=== PATIENT | female | born 1980 | race Caucasian/White ===

== ENCOUNTER 2018-01-11 16:56 | Emergency (ER) | payer OTHER ==
--- OUTSIDE RECORDS SUMMARY | 2018-01-11 18:10 | XMS REPORT ---
:1980 External Reference #:[id number] Author Organization [facility] Address [address], [address] [place] [address] Phone [phone] Care Team Providers Name Role Phone Frida Mcnally Care Team Information Amr Physician Unavailable Sherri Mosley M.D. Primary Care Physician Unavailable Payers Type Date Identification Numbers Payment Provider Subscriber Commercial Policy Number: [id number] [facility] Choco Finn PayID: [id number] [address] [place] [address] Problems Date Description Provider Status Onset: 05/20/2017 Derangement of knee Any Morales MD Active Onset: 05/20/2017 Tear of articular cartilage of left Any Morales MD Active knee, current, subs Onset: 06/12/2017 Mild intermittent asthma Sherri Mosley M.D. Active Onset: 08/29/2011 Gallbladder calculus with acute SimonFer MD Resolved cholecystitis and no obstruction Resolved: 08/22/2016 Onset: 03/09/2011 Contraception care management Lucy Odell MD Resolved Resolved: 08/22/2016 Onset: 06/12/2017 Encounter for other contraceptive Sherri Mosley M.D. Resolved management Resolved: 08/09/2017 Onset: 06/13/2017 Adult health examination Sherri Mosley M.D. Resolved Resolved: 08/09/2017 Onset: 06/13/2017 Screening for malignant neoplasm of Sherri Mosley M.D. Resolved cervix Resolved: 08/09/2017 Family History Date Family Member(s) Problem(s) Comments Father No Current Problems Father Too knee replacements Mother Mitral Valve Prolapse repaired Children 3 living & healthy First Son No Current Problems Second Son No Current Problems First Daughter No Current Problems Second Daughter No Current Problems Third Daughter No Current Problems Siblings 2 living First Brother No Current Problems First Sister Cervical Cancer Hysterectomy, in 30s Grandfather Myocardial Infarction Paternal Grandfather Lung Cancer smoker Paternal Grandfather due to Lung () - smoker Cancer Paternal Grandmother Unknown Maternal Grandfather due to Heart () Attack Maternal Grandmother Unknown : (age 87 Maternal Grandmother due to Leukemia Years) Social History Type Date Description Comments Lives With Spouse Diet Patient follows no dietary restrictions 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 Hand Dominance Right-handed Cigarette Use Quit ETOH Use Rarely consumes alcohol Recreational Drug Use Never Used Drugs Smoking Patient is a former smoker Daily Caffeine Patient consumes minimal amounts of caffeine Allergies, Adverse Reactions, Alerts Date Description Reaction Status Severity Comments 10/21/2014 NKDA active 08/28/2011 Codeine NAUSEA/VOMITING inactive Medications Medication Date Status Form Strength Qnty SIG Indications Ordering Provider Mirena (52 06/13/ Active IUD 20mcg/24HR inserted Z30.8 Melany, [place]) 201706/13/2017, bianca Polanco by Jaclyn 06/13/2022, Lot [id number] Tylenol / Active Capsules 325mg 2 tab by Unknown 0000 mouth three times per day as needed Ibuprofen / Active Capsules 200mg as needed Unknown 0000 Aspirin 09/11/ Hx Tablets 325mg 21tabs 1 tab po q M23.612 Andrew 2018 bob Hurst MD on September 18 Oxycodone 09/11/ Hx Capsules 5mg 42caps 1 tab by M23.612 Andrew [facility] 2018 mouth Any, every 4 hours as needed pain Proair HFA 06/12/ Hx Aerosol 108(90Base 8.5uni 1 puff J45.20 Melany 2018 ) mcg/Act ts every 4 clotilde Polanco as M.DLaith needed Famotidine 03/22/ Hx Tablets 20mg 60tabs 1 by mouth Joya Odell twice a joyce Ayala MD Advair 02/23/ Hx Aerosol 250/50 1units 1 puff Vianca Odell 2013 twice a joyce Ayala MD Ventolin HFA 02/10/ Hx Aerosol 108mcg/Act 1units 1-2 puffs Joya Odell q 4-6 Lucy, hours prn Divalproex 11/25/ Hx Tablets DR 250mg 60tabs 1 by mouth Ned Odell 2013 twice a Lucy day Naproxen Kit 11/10/ Hx Tablets 500mg 60tabs one by Joya White mouth Kim, twice a MD day with food as needed Zoloft / Hx Concentrate 20mg/ml 1 Daily Unknown 0000 Lexapro / Hx Tablets 20mg 30tabs po qd Unknown 0000 Vital Signs Date Vital Result Comment 01/01/2018 BP Systolic Sitting Right Arm 138 mmHg BP Diastolic Sitting Right Arm 88 mmHg Body Temperature 98.7 F Heart Rate 68 /min Respiratory Rate 17 /min Height 61.5 inches 5'1.50" Weight 167.00 lb BMI (Body Mass Index) 31.0 kg/m2 BSA (Body Surface Area) 1.76 m2 [place] body weight in kilograms 49 O2 % BldC Oximetry 97 % 12/11/2017 BP Systolic 128 mmHg BP Diastolic 83 mmHg Body Temperature 98.4 F Heart Rate 84 /min Height 61.5 inches 5'1.50" Weight 173.00 lb BMI (Body Mass Index) 32.2 kg/m2 BSA (Body Surface Area) 1.79 m2 [place] body weight in kilograms 49 O2 % BldC Oximetry 98 % Pain Level 2 11/06/2017 BP Systolic Sitting Right Arm 124 mmHg BP Diastolic Sitting Right Arm 87 mmHg Body Temperature 98.0 F Heart Rate 92 /min Height 61.5 inches 5'1.50" Weight 173.00 lb BMI (Body Mass Index) 32.2 kg/m2 BSA (Body Surface Area) 1.79 m2 [place] body weight in kilograms 49 O2 % BldC Oximetry 98 % 10/07/2017 BP Systolic Sitting Left Arm 135 mmHg BP Diastolic Sitting Left Arm 82 mmHg Body Temperature 99.0 F Heart Rate 87 /min Respiratory Rate 18 /min Height 61.5 inches 5'1.50" Weight 168.00 lb BMI (Body Mass Index) 31.2 kg/m2 BSA (Body Surface Area) 1.76 m2 [place] body weight in kilograms 49 O2 % BldC Oximetry 98 % 09/27/2017 BP Systolic Sitting Left Arm 124 mmHg BP Diastolic Sitting Left Arm 80 mmHg Body Temperature 98.1 F Heart Rate 89 /min Respiratory Rate 16 /min Height 61.5 inches 5'1.50" Weight 173.00 lb BMI (Body Mass Index) 32.2 kg/m2 BSA (Body Surface Area) 1.79 m2 [place] body weight in kilograms 49 O2 % BldC Oximetry 98 % 09/11/2017 BP Systolic 115 mmHg BP Diastolic 76 mmHg Body Temperature 97.9 F Heart Rate 74 /min Respiratory Rate 16 /min Height 61.5 inches 5'1.50" Weight 171.00 lb BMI (Body Mass Index) 31.8 kg/m2 BSA (Body Surface Area) 1.78 m2 [place] body weight in kilograms 49 O2 % BldC Oximetry 97 % Room Air Pain Level 5 08/13/2017 BP Systolic 104 mmHg BP Diastolic 64 mmHg Body Temperature 98.3 F Heart Rate 84 /min Height 62 inches 5'2" Weight 171.00 lb BMI (Body Mass Index) 31.3 kg/m2 BSA (Body Surface Area) 1.79 m2 [place] body weight in kilograms 50 O2 % BldC Oximetry 98 % 07/12/2017 BP Systolic Sitting Left Arm 140 mmHg BP Diastolic Sitting Left Arm 86 mmHg Body Temperature 99.3 F Heart Rate 84 /min Respiratory Rate 17 /min Height 62 inches 5'2" Weight 168.00 lb BMI (Body Mass Index) 30.7 kg/m2 BSA (Body Surface Area) 1.78 m2 [place] body weight in kilograms 50 06/13/2017 BP Systolic 122 mmHg BP Diastolic 80 mmHg Heart Rate 84 /min Weight 168.00 lb O2 % BldC Oximetry 97 % 06/12/2017 BP Systolic Sitting Left Arm 116 mmHg BP Diastolic Sitting Left Arm 73 mmHg Body Temperature 98.9 F Heart Rate 79 /min Respiratory Rate 19 /min Height 62 inches 5'2" Weight 168.00 lb BMI (Body Mass Index) 30.7 kg/m2 BSA (Body Surface Area) 1.78 m2 [place] body weight in kilograms 50 06/12/2017 BP Systolic Sitting Left Arm 102 mmHg BP Diastolic Sitting Left Arm 78 mmHg Height 52 inches 4'4" Weight 168.00 lb BMI (Body Mass Index) 43.7 kg/m2 BSA (Body Surface Area) 1.56 m2 [place] body weight in kilograms 45 05/20/2017 BP Systolic Sitting Left Arm 122 mmHg BP Diastolic Sitting Left Arm 76 mmHg Heart Rate 80 /min Height 62 inches 5'2" Weight 167.00 lb BMI (Body Mass Index) 30.5 kg/m2 BSA (Body Surface Area) 1.77 m2 [place] body weight in kilograms 50 05/06/2017 BP Systolic Sitting Right Arm 110 mmHg BP Diastolic Sitting Right Arm 74 mmHg Heart Rate 76 /min Height 62 inches 5'2" Weight 170.00 lb BMI (Body Mass Index) 31.1 kg/m2 BSA (Body Surface Area) 1.78 m2 [place] body weight in kilograms 50 12/08/2013 Height 62 inches 5'2" Weight 208.00 lb 11/10/2013 BP Systolic 128 mmHg BP Diastolic 82 mmHg 11/10/2013 BP Systolic 144 mmHg BP Diastolic 92 mmHg Height 62 inches 5'2" Weight 206.00 lb 12/22/2012 BP Systolic 118 mmHg BP Diastolic 80 mmHg Height 62 inches 5'2" Weight 194.00 lb 08/29/2011 BP Systolic Sitting Left Arm 112 mmHg BP Diastolic Sitting Left Arm 79 mmHg Heart Rate 90 /min Respiratory Rate 18 /min Height 62 inches 5'2" Weight 169.00 lb w clothes & shoes BMI (Body Mass Index) 30.9 kg/m2 01/10/2011 BP Systolic 1 mmHg 01/10/2011 BP Systolic 118 mmHg BP Diastolic 80 mmHg Height 62 inches 5'2" 12/07/2010 BP Systolic 114 mmHg BP Diastolic 68 mmHg Height 62 inches 5'2" Weight 165.00 lb Results Test Date Test Result H/L Range Note Laboratory test finding 09/17/2017 Urine HCG NEGATIVE Negative 1, 2 (Qualitative) Laboratory test finding 11/27/2013 Thyroid Stim Hormone 1.35 uIU/mL 0.49- 4.67 Basic Metabolic Panel 11/27/2013 Anion Gap 13 mEq/L 8-16 BUN 14 mg/dL 5-23 BUN/Creat 14.0 ratio Calcium 9.0 mg/dL 8.5-10.1 Carbon Dioxide 23 mEq/L 18-29 Chloride 107 mmol/L 98-107 Creatinine 1.0 mg/dL 0.5-1.4 Glom Filtration Rate, Estimate >60 mL/min >60 Glucose 85 mg/dL 76-115 If >60 mL/min >60 3 Potassium 4.0 mmol/L 3.5-5.1 Sodium 139 mmol/L 136-145 CBS W/Automated Diff 11/27/2013 Bas% 0.5 % 0.0-1.1 Baso # 0.04 K/uL 0.0-0.1 Eo% 2.0 % 0.0-6.6 Eos # 0.16 K/uL 0.0-0.5 Hematocrit 41.4 % 36.0-46.1 Hemoglobin 14.5 gm/dL 11.6-15.8 Lymph # 2.53 K/uL 0.8-3.4 Lymph % 32.3 % 17.0-46.1 Mean Cell Volume 89.4 fl 80.9-99.0 Mean Corpuscular HGB 31.3 pg 25.9-32.7 Mean Corpuscular HGB Conc 35.0 g/dL High 30.8-34.3 Mean Platelet Volume 10.9 fL 8.9-12.4 Coke # 0.49 K/uL 0.3-0.9 Coke % 6.3 % 4.3-13.2 Neut# 4.62 K/uL 1.0-7.0 Neut% 58.9 % 40.4-72.8 Platelet Count 244 K/uL 155-360 Red Blood Count 4.63 M/uL 3.90-5.40 Red Cell Distri Width %CV 13.0 % 11.7-14.4 Red Cell Distri Width SD 41.8 fl 3-47 White Blood Count 7.8 K/uL 3.1-10.7 Lipid Profile (Trig/Chol/HDL) 12/22/2012 Cholesterol 155 mg/dL Less than 200 Cholesterol/HDL Ratio 3.2 Average 1-4.44 HDL Cholesterol 49 mg/dL 40-60 4 LDL Cholesterol 87.4 Less Than 100 5 Triglycerides 93 mg/dL 40-200 Laboratory test finding 12/22/2012 ThinPrep Pap: Cervix/Endocx See Note 6 CBC No Diff 12/22/2012 Hematocrit 41 % 35-47 Hemoglobin 14.6 g/dL 12.0-16.0 Mean Corpuscular HGB Conc 36 g/dL 31-36 Mean Corpuscular Hemoglobin 33 pg High 27-31 Mean Corpuscular Volume 91 fL 80-97 Mean Platelet Volume 9 um3 7.4-10.4 Platelet Count 242 10^3/uL 150-450 Red Blood Count 4.47 10^6/uL 4.0-5.4 Red Cell Distribution Width 12 % 10.5-15 White Blood Count 6.0 10^3/uL 4.8-10.8 Basic Metabolic Panel 12/22/2012 Anion Gap 6.0 mmol/L 2-11 BUN/Creatinine Ratio 8.8 8-20 Blood Urea Nitrogen 7 mg/dL 6-24 Calcium 9.6 mg/dL 8.1-9.9 Chloride 106 mmol/L 101-111 Co2 Carbon Dioxide 26.0 mmol/L 22-32 Creatinine 0.80 mg/dL 0.50-1.40 Egfr 107.6 >60 7 Egfr Non- 83.7 >60 Glucose 97 mg/dL 70-100 Potassium 4.1 mmol/L 3.5-5.0 Sodium 138 mmol/L 133-145 Laboratory test finding 12/22/2012 TSH (Thyroid Stimulating 1.51 miu/mL 0.34-5.60 Horm) Laboratory test finding 12/22/2012 HPV High Risk Negative Negative 8 Herpes Culture See Note 9 Laboratory test finding 09/14/2011 Gallbladder See Note 10 Basic Metabolic Panel 09/11/2011 Glucose 90 mg/dL 76-115 BUN 6 mg/dL 5-23 Creatinine 0.9 mg/dL 0.5-1.4 Glom Filtration Rate, Estimate >60 mL/min >60 If >60 mL/min >60 11 BUN/Creat 6.6 ratio Sodium 141 mmol/L 136-145 Potassium 3.8 mmol/L 3.5-5.1 Chloride 108 mmol/L High 98-107 Carbon Dioxide 24 mEq/L 18-29 Anion Gap 13 mEq/L 8-16 Calcium 8.9 mg/dL 8.5-10.1 CBC 09/11/2011 White Blood Count 6.2 K/uL 3.1-10.7 Red Blood Count 4.62 M/uL 3.90-5.40 Hemoglobin 14.2 gm/dL 11.6-15.8 Hematocrit 41.2 % 36.0-46.1 Mean Cell Volume 89.2 fl 80.9-99.0 Mean Corpuscular HGB 30.7 pg 25.9-32.7 Mean Corpuscular HGB Conc 34.5 g/dL High 30.8-34.3 Platelet Count 218 K/uL 155-360 Red Cell Distri Width %CV 13.2 % 11.7-14.4 Mean Platelet Volume 11.1 fL 8.9-12.4 Urine Screen 09/11/2011 Urine Color YELLOW Yellow Urine Clarity CLEAR Clear Urine Glucose - Dipstick NEGATIVE mg/dL Negative Urine Bilirubin - Dipstick NEGATIVE Negative Urine Ketone NEGATIVE mg/dL Negative Urine Specific [place] 1.010 1.010-1.030 Urine Blood NEGATIVE Negative Urine PH 7.0 6.5-7.5 Urine Protein - Dipstick NEGATIVE mg/dL Negative Urine Urobilinogen - Dipstick 0.2 E.U./dL 0.2-1.0 Urine Nitrite - Dipstick NEGATIVE Negative Urine Leuk Esterase NEGATIVE Negative Laboratory test finding 09/11/2011 HCG Serum, Qualitative NEGATIVE Laboratory test finding 08/18/2011 HCG Serum, Qualitative Negative 1 CONSULT 09/12/17 10;30 2 FIRST MORNING SPECIMENS GENERALLY CONTAIN THE HIGHEST CONCENTRATION OF HCG AND ARE RECOMMENDED FOR EARLY DETECTION OF . Method: AdExtentVue One-Step Immunoassay 3 Note: Persistent reduction for 3 months or more in an eGFR <60 mL/min/1.73 m2 defines CKD. Patients with eGFR values >/=60 mL/min/1.73 m2 may also have CKD if evidence of persistent proteinuria is present. The original MDRD equation for estimated GFR is not valid for patients less than 18 years of age. Additional information may be found at www.kdoqi.org. 4 HDL Interpretation: Undesirable: High Risk: Less than 40 mg/dL Desirable: Low Risk: Greater than 60 mg/dL 5 LDL Interpretation: Low Risk Optimal Level: LDL Less than 100 mg/dL Near or Above Optimal: LDL 100-129 mg/dL Borderline High Risk: LDL 130-159 mg/dL High Risk : LDL 160-189 mg/dL Very High Risk: LDL Greater than 189 mg/dL 6 CYTOLOGY SCREENER - LOCAL OPERATOR @ 05/19 Screened by: Karen Guzman SCT(ASCP) PAP: FINAL REPORT SPECIMEN ADEQUACY: SPECIMEN SATISFACTORY FOR INTERPRETATION INTERPRETATION: NEGATIVE FOR INTRAEPITHELIAL LESION OR MALIGNANCY COMMENT: THINPREP PREPARED PAP SLIDE # Prepared in the Cytology laboratory from the ThinPrep sample is 1 ThinPrep smear. PAP ACCESSI QUESTIONNAIRE 04/17 PERTINENT CLINICAL HISTORY FOR PAP (LOCAL OPERATOR ) CYTOLOGY (Check all that apply): ? N Post ? N Menopause? N LMP date: 12/08/12 If patient had related surgical procedure: Related Therapy: IUD: Y Oral Contraception: Depo: Nova Ring: Hormone Replacement: Significant Clinical History: ANNUAL ===== DISCLAIMER: The Pap smear is a screening test and not a diagnostic procedure. False negative and false positive results can and do occur for a number of reasons. Regular screening provides an aid in detecting treatable cervical abnormalities, but should not be used as the only means for detecting cervical dysplasia and carcinoma. ----- KAREN Sams 12/25/12 0801 ----- 7 Because ethnic data is not always readily available, this report includes an eGFR for both -Americans and non- Americans. The National Kidney Disease Education Program (NKDEP) does not endorse the use of the MDRD equation for patients that are not between the ages of 18 and 70, are , have extremes of body size, muscle mass, or nutritional status, or are non- or non-. According to the National Kidney Foundation, irrespective of diagnosis, the stage of the disease is based on the level of kidney function: Stage Description GFR(mL/min/1.73 m(2)) 1 Kidney damage with normal or decreased GFR 90 2 Kidney damage with mild decrease in GFR 60- 89 3 Moderate decrease in GFR 30-59 4 Severe decrease in GFR 15-29 5 Kidney failure <15 (or dialysis) 8 This high-risk HPV test detects thirteen high-risk types (16/18/31/33/35/39/45/51/52/56/58/59/68) without differentiation. Performed at: - [facility] [address] [id number] Crystal Mounter: Akanksha Sheth MD, Phone: [phone] WRONG SPEC FOR TEST 10 OPERATION/PROCEDURE Lap. cholecystectomy DIAGNOSIS: "GALLBLADDER": MILD CHRONIC CHOLECYSTITIS. NO EVIDENCE OF ACUTE INFLAMMATION, DYSPLASIA NOR NEOPLASIA APPRECIATED. WYS/clf GROSS The specimen is received in a single container additionally labeled "GALLBLADDER". This contains a grossly recognizable unopened gallbladder. This has a green shiny smooth surface and overall measures 6.7 x 3.0 x 2.4 cm. in overall dimensions. There is no visible wall defect. The wall has a uniform thickness of 0.2 cm. The mucosal surface is green, velvety smooth and unremarkable. Trabeculations are noted. No morales reticular discoloration of cholesterolosis is noted. No stones are noted. [employer] Tech sections are submitted within a single cassette. WS/clf MICROSCOPIC Sections show gallbladder mucosa lined by columnar epithelium with focal synechia, and Rokitansky-Aschoff sinus formation. The submucosa has a mild infiltrate of lymphocytes and plasma cells. The muscular wall is slightly fibrotic and hypertrophied. PRE OPERATIVE DIAGNOSIS Symptomatic cholecystitis REVIEW CODE CODE: I Signed RONALD BUENO MD 09/18/11 1427 11 Note: Persistent reduction for 3 months or more in an eGFR <60 mL/min/1.73 m2 defines CKD. Patients with eGFR values >/=60 mL/min/1.73 m2 may also have CKD if evidence of persistent proteinuria is present. The original MDRD equation for estimated GFR is not valid for patients less than 18 years of age. Additional information may be found at www.kdoqi.org. Procedures Date CPT Code Description Status 09/17/2017 33126 Arthroscopic anterior cruciate ligment Completed repair/reconstruct/augment 08/13/2017 23095 EKG-Tracing And Report Completed 06/13/2017 81388 Insertion Of Intrauterine Device Completed 06/12/2017 16487 Removal Of IUD Completed 05/06/2017 29187 Radiology, Knee 3 Views Completed 09/14/2011 45775 Laparoscopy; cholecystectomy Completed 09/14/2011 76917 Anesthesia, Upper Abdomen Surgery Not Otherwise Spec Completed 01/10/2011 84042 Insertion Of Intrauterine Device Completed 12/07/2010 26479 Post- Care Only Completed 10/17/2010 33514 Anesthesia,Neuraxial Labor Completed 10/17/2010 71296 Vaginal Delivery [facility] Care Completed 10/16/2010 73169 Antepartum 7 Or More Total Office Visit Completed 10/11/2010 31973 Antepartum 7 Or More Total Office Visit Completed 10/02/2010 45135 Antepartum 7 Or More Total Office Visit Completed 09/18/2010 91473 Antepartum 7 Or More Total Office Visit Completed 09/05/2010 91288 Antepartum 7 Or More Total Office Visit Completed 08/21/2010 46977 Antepartum 7 Or More Total Office Visit Completed 07/17/2010 11438 Antepartum 7 Or More Total Office Visit Completed 06/28/2010 14327 Antepartum 7 Or More Total Office Visit Completed 06/14/2010 88273 Antepartum 7 Or More Total Office Visit Completed Encounters Type Date Location Provider CPT E/M Dx Office Visit 09/11/2017 9:30a [place] [address] S83.32xD X58.xxxD Office Visit 08/13/2017 11:30a Family Medicine Sherri Mosley M.D. 31147 Z01.818 Z30.8 Office Visit 07/12/2017 3:00p [place] [address] M23.612 Office Visit 06/13/2017 9:00a [facility] Sherri Mosley M.D. 75366 Z00.00 Z12.4 Z30.8 Office Visit 06/12/2017 10:30a [place] [address] M23.612 Office Visit 06/12/2017 9:30a [facility] Sherri Mosley M.D. 20643 Z30.8 J45.20 Office Visit 05/20/2017 10:30a [place] [address] S83.32xD X58.xxxD Office Visit 05/06/2017 3:00p [place] [address] M25.562 Office Visit 08/29/2011 11:00a [place] [address] 574.10 Plan of Care Future Appointment(s):02/12/2018 9:30 am - Any Morales MD at Orthopaedic Pckdrj2701/01/2018 - Any Morales MDS83.512D Sprain of anterior cruciate ligament of left knee, subsS83.32xD Tear of articular cartilage of left knee, current, subsNew Therapy:Physical/Occupational TherapyNew Therapy:Physical/ Occupational Therapy
[2018-01-11 18:21] VITALS: BP 140/90
--- NOTE | 2018-01-11 18:25 | UC ---
Throat Pain/Nasal Sandro HPI - HPI Summary HPI Summary: nasal congestion, green mucus, cough, denies fever - History of Current Complaint Chief Complaint: UCRespiratory Stated Complaint: SINUSES Time Seen by Provider: 01/11/18 18:13 Hx Obtained From: Patient Hx Last Menstrual Period: 01/02/18 Onset/Duration: Sudden Onset, Lasting Days Severity: Moderate Pain Intensity: 7 Cough: Productive Associated Signs & Symptoms: Positive: Wheezing, Sinus Discomfort, Nasal Discharge - Allergies/Home Medications Allergies/Adverse Reactions: Allergies Allergy/AdvReac Type Severity Reaction Status Date / Time No Known Allergies Allergy Verified 01/11/18 18:10 Home Medications: Home Medications Chlorphen/Phenyleph/Ibuprofen [Advil Allergy & Congestio] 1 tab PO PRN 01/11/18 [History] Guaifen/Phenyleph/Acetaminophn [Tylenol Cold Head Congest Cplt] 1 each PO PRN [History] Ibuprofen TAB* [Advil TAB*] 200 mg PO Q6H PRN 01/11/18 [History Confirmed ] Levonorgestrel (Iud) [Mirena IUD] 0 mcg 01/11/18 [History] PMH/Surg Hx/FS Hx/Imm Hx Previously Healthy: Yes - Surgical History Surgical History: Yes Surgery Procedure, Year, and Place: RIGHT KNEE SURGERY, gallbladder surgery- 2011. LEFT KNEE ACL RECONSTRUCTION - Family History Known Family History: Positive: Hypertension - Social History Alcohol Use: None Substance Use Type: None Smoking Status (MU): Former Smoker Length of Time of Smoking/Using Tobacco: QUIT 2 YEARS AGO Have You Smoked in the Last Year: No - Immunization History Most Recent Influenza Vaccination: none Review of Systems Constitutional: Negative Skin: Negative Eyes: Negative ENT: Sore Throat, Nasal Discharge Respiratory: Cough Cardiovascular: Negative Gastrointestinal: Negative Genitourinary: Negative Motor: Negative Neurovascular: Negative Musculoskeletal: Negative Neurological: Headache Psychological: Negative Is Patient Immunocompromised?: No All Other Systems Reviewed And Are Negative: Yes Physical Exam Triage Information Reviewed: Yes Appearance: Well-Nourished, Ill-Appearing, Pain Distress Vital Signs: Initial Vital Signs Temp 99.2 F 01/11/18 18:14 Pulse 83 01/11/18 18:14 Resp 17 01/11/18 18:14 BP 140/90 10/06/18 18:14 Pulse Ox 96 01/11/18 18:14 Vital Signs Reviewed: Yes Eye Exam: Normal ENT: Positive: Pharyngeal erythema, TM bulging, TM dull Dental Exam: Normal Neck exam: Normal Neck: Positive: Supple, Nontender, No Lymphadenopathy Respiratory Exam: Normal Respiratory: Positive: Chest non-tender, Lungs clear, Normal breath sounds Cardiovascular Exam: Normal Cardiovascular: Positive: RRR, No Murmur, Pulses Normal Abdominal Exam: Normal Abdomen Description: Positive: Nontender, No Organomegaly, Soft Musculoskeletal Exam: Normal Neurological Exam: Normal Psychological Exam: Normal Skin Exam: Normal Throat Pain/Nasal Course/Dx - Course Course Of Treatment: hx obtained, exam performed, meds reviewed, treaed for nasal congestion - Differential Dx/Diagnosis Differential Diagnosis/HQI/PQRI: Otitis Media, Pharyngitis, Sinusitis, URI Provider Diagnoses: nasal congestion Discharge - Sign-Out/Discharge Documenting (check all that apply): Patient Departure All imaging exams completed and their final reports reviewed: Yes - Discharge Plan Condition: Stable Disposition: HOME Prescriptions: predniSONE [Prednisone 20 MG TAB] 20 mg PO DAILY #14 tablet Referrals: Becka Tello PA [Primary Care Provider] - - Billing Disposition and Condition Condition: STABLE Disposition: Home
== END 2018-01-11 18:38 | disposition home or self-care (01) ==
LOC: UCCORT 16:56
DX: R09.81 Nasal congestion (principal); Z87.891 Personal history of nicotine dependence
CPT/HCPCS: 99211; G0463